=== PATIENT | female | born 1925 | race Caucasian/White ===

== ENCOUNTER 2017-08-25 15:45 | Emergency (ER) | payer MEDICARE ==
[~2017-08-25] VITALS: Ht 165.1 cm; Wt 67.0 kg
[~2017-08-25 15:45] MED LIST: ANAS1TAB3 PO; CALC1TAB78 PO; CHOL4PAC2 PO; DILT120C80 PO; FLUT1DIS3 INH; POTA10TA12 PO; RIVA20TA PO
[2017-08-25] MEDS ORDERED: SODIUM CHLORIDE 0.9% 1,000ML IVBOLUS ONE (16:30)
[2017-08-25] MEDS ORDERED: DEXAMETHASONE 4 MG/ML, 1ML IV ONE (16:30)
[2017-08-25] MEDS ORDERED: SODIUM CHLORIDE FLUSH 10ML SYR IVF ONE (16:30)
[2017-08-25 16:41] LABS: BASOPHILS # (AUTO) 0.02 x10^3/uL (0-0.1); BASOPHILS % (AUTO) 0 % (0-1); EOSINOPHILS # (AUTO) 0.08 x10^3/uL (0-0.4); EOSINOPHILS % (AUTO) 1 % (1-7); LYMPHOCYTES # (AUTO) 1.76 x10^3/uL (1-3.4); LYMPHOCYTES % (AUTO) 14 % (22-44); MD NO; MEAN CORPUSCULAR VOLUME 93.9 fL (80-100); MEAN PLATELET VOLUME 8.6 fL (7.4-10.4); MONOCYTES % (AUTO) 6 % (2-9); NEUTROPHILS # (AUTO) 9.96 x10^3/uL (1.8-6.8); NEUTROPHILS % (AUTO) 79 % (42-75); PLATELET COUNT 254 x10^3/uL (130-400); RED BLOOD COUNT 4.21 x10^6/uL (3.82-5.3); RED CELL DISTRIBUTION WIDTH 15.1 % (9.6-15.2)
[2017-08-25] MEDS ORDERED: DEXAMETHASONE 4 MG/ML, 5ML ONE (16:41)
[2017-08-25 16:53] LABS: ALBUMIN 3.4 g/dL (3.4-5.0); ANION GAP 9 mmol/L (5-15); CALCIUM 8.9 mg/dL (8.5-10.1); CHLORIDE 111 mmol/L (98-107); CREATININE 0.98 mg/dL (0.55-1.02)
[2017-08-25 17:30] VITALS: BP 146/65
== END 2017-08-25 17:48 | disposition home or self-care (01) ==
LOC: ED 16:30
DX: T78.3XXA Angioneurotic edema, initial encounter (principal); S50.812A Abrasion of left forearm, initial encounter; J44.9 Chronic obstructive pulmonary disease, unspecified; I48.91 Unspecified atrial fibrillation; I10 Essential (primary) hypertension; Z85.3 Personal history of malignant neoplasm of breast; X58.XXXA Exposure to other specified factors, initial encounter; Y93.89 Activity, other specified; Y92.89 Other specified places as the place of occurrence of the external cause; Y99.9 Unspecified external cause status
CPT/HCPCS: 36415; 80048; 82040; 85025; 93005; 96361; 96374; 99285; J1100; J7030

== ENCOUNTER 2017-08-27 05:27 | Emergency (ER) | payer MEDICARE ==
[~2017-08-27] VITALS: Ht 162.6 cm; Wt 65.0 kg
[2017-08-27] MEDS ORDERED: FURO20TA3 PO (05:44)
[2017-08-27] MEDS ORDERED: SODIUM CHLORIDE FLUSH 10ML SYR IVF ONE (06:00)
[2017-08-27 06:02] LABS: MEAN CORPUSCULAR HEMOGLOBIN 31.9 pg (27.0-34.8); MEAN CORPUSCULAR HGB CONC 33.6 g/dL (32.4-35.8); MEAN CORPUSCULAR VOLUME 94.8 fL (80-100); MEAN PLATELET VOLUME 9.2 fL (7.4-10.4); PLATELET COUNT 253 x10^3/uL (130-400); RED BLOOD COUNT 4.48 x10^6/uL (3.82-5.3)
[2017-08-27 06:08] LABS: INTERNATIONAL NORMALIZED RATIO 1.24 (0.93-1.1); PROTHROMBIN TIME 12.7 Seconds (9.6-11.5)
[2017-08-27 06:10] LABS: ALBUMIN 3.5 g/dL (3.4-5.0); ANION GAP 10 mmol/L (5-15); CALCIUM 8.8 mg/dL (8.5-10.1); CHLORIDE 109 mmol/L (98-107); CREATININE 1.34 mg/dL (0.55-1.02)
[2017-08-27 06:30] LABS: MD YES
[2017-08-27 06:32] LABS: BAND#(MANUAL) 1.97 x10^3/uL; BANDS%(MANUAL) 6 % (0-7); LYMPH#(MANUAL) 7.87 x10^3/uL (1-3.4); LYMPHS% (MANUAL) 24 % (22-44); MONOS#(MANUAL) 0.33 x10^3/uL (0.3-2.7); MONOS% (MANUAL) 1 % (2-9); REACTIVE LYMPHS # (MANUAL) 0.66 x10^3/uL (0-0); REACTIVE LYMPHS % (MANUAL) 2 % (0-0); SEG#(MANUAL) 21.98 x10^3/uL (1.8-6.8); SEGS% (MANUAL) 67 % (42-75)
[2017-08-27 06:33] LABS: <PLATELET ESTIMATE> ADEQUATE; <PLT MORPHOLOGY> NORMAL PLT MORPH
[2017-08-27 06:34] LABS: <RBC MORPHOLOGY> NORMAL
[2017-08-27 07:51] VITALS: BP 130/62
== END 2017-08-27 07:58 | disposition home or self-care (01) ==
LOC: ED 06:08
DX: S00.83XA Contusion of other part of head, initial encounter (principal); S00.531A Contusion of lip, initial encounter; T78.3XXA Angioneurotic edema, initial encounter; I48.91 Unspecified atrial fibrillation; J44.9 Chronic obstructive pulmonary disease, unspecified; F03.90 Unspecified dementia, unspecified severity, without behavioral disturbance, psychotic disturbance, mood disturbance, and anxiety; C50.919 Malignant neoplasm of unspecified site of unspecified female breast; Z79.01 Long term (current) use of anticoagulants; X58.XXXA Exposure to other specified factors, initial encounter; Y93.89 Activity, other specified; Y99.8 Other external cause status; Y92.89 Other specified places as the place of occurrence of the external cause
CPT/HCPCS: 36415; 70450; 70486; 71046; 80048; 82040; 85025; 85610; 85730; 93005; 99285